=== PATIENT | male | born 1965 | race Caucasian/White ===

== ENCOUNTER 2025-08-02 20:51 | Emergency (ER) | payer OTHER ==
[2025-08-02 20:59] VITALS: TEMP 98.6; BMI 29.7
[2025-08-02] MEDS ORDERED: DIPHTH,PERTUSS(ACELL),TET 0.5 ML DISP.SYRIN IM ONE (21:39)
[2025-08-02] MEDS: DIPHTH,PERTUSS(ACELL),TET 0.5 ML DISP.SYRIN IM ONE (21:42)
[2025-08-02 21:45] VITALS: BP 161/65; PULSE 89; RESP 17
== END 2025-08-02 21:46 | disposition home or self-care (01) ==
LOC: JER 20:51
PROC: 3E0234Z Introduction of Serum, Toxoid and Vaccine into Muscle, Percutaneous Approach (ICD-10-PCS; principal; 2025-08-02)
DX: S61.251A Open bite of left index finger without damage to nail, initial encounter (principal); W53.21XA Bitten by squirrel, initial encounter; Z23 Encounter for immunization
CPT/HCPCS: 90471; 90715; 99284-25